=== PATIENT | female | born 1950 | race Caucasian/White ===

== ENCOUNTER → 2018-04-03 | Outpatient (CLI) | payer MEDICARE, OTHER | LOC: LAB.O 13:56 | PROVIDERS: ATTEND Nurse Practitioner Family | DX: I10 Essential (primary) hypertension (principal); E78.2 Mixed hyperlipidemia; E03.9 Hypothyroidism, unspecified ==

== ENCOUNTER → 2018-04-15 | Outpatient (CLI) | payer MEDICARE, OTHER ==
--- NOTE | 2018-04-16 08:52 | US ---
EXAM DESCRIPTION: Liver: ULTRASOUND. CLINICAL HISTORY: ABNORMAL LEVELS OF OTHER SERUM ENZYMES COMPARISON: None. TECHNIQUE: Transabdominal scannin-dimensional and Doppler modes. FINDINGS: Gallbladder: normal size, shape, echogenicity; no intraluminal stones or sludge. No fluid around the gallbladder. No wall thickening. 2.1 mm. Non-tender with transducer pressure. Common bile duct: caliber 4.6 mm within normal limits. Liver: Increased echogenicity; contour liver capsule slightly lobulated where seen. No fluid around the liver. Intrahepatic biliary ducts normal caliber. Doppler hepatopedal flow portal vein. Less than 1 cm. Long axis right lobe 14.8 centimeters. Pancreas: Not well visualized. Duct not seen. Right kidney: long axis measures 11.6 cm. Normal echogenicity. Normal cortical thickness. No hydronephrosis IMPRESSION: 1. Normal ultrasound of the gallbladder with no stones wall thickening or tenderness. No fluid in Morison's pouch. Normal common bile duct. 2. Fatty liver normal size. Minimal lobulation of the capsule. Normal caliber of the ducts and vascular structures. Pancreas not well visualized. Right kidney unremarkable. Electronically signed by: Prem Boston MD 04/16/2018 8:50 AM [employer]
== END ==
LOC: LAB.O 10:34
PROVIDERS: ATTEND Nurse Practitioner Family
DX: R73.09 Other abnormal glucose (principal); R74.8 Abnormal levels of other serum enzymes; K76.0 Fatty (change of) liver, not elsewhere classified; R16.0 Hepatomegaly, not elsewhere classified

== ENCOUNTER → 2018-12-03 | Outpatient (CLI) | payer MEDICARE, OTHER | LOC: LAB.O 13:57 | PROVIDERS: ATTEND Nurse Practitioner Family | DX: D64.9 Anemia, unspecified (principal) ==